=== PATIENT | female | born 1980 | race African-American/Black ===

== ENCOUNTER 2024-12-05 21:57 | Emergency (ER) | payer SELFPAY ==
[~2024-12-05] VITALS: Ht 175.3 cm; Wt 73.0 kg
[2024-12-05 21:59] VITALS: O2SAT 100
[2024-12-05] MEDS: ONDANSETRON HCL 4MG/2ML INJ IV ONE (22:57)
[2024-12-05 22:58] LABS: BASOPHILS % 0.3 % (0.0-2.0); EOSINOPHILS % 1.4 % (0.0-5.0); HEMATOCRIT. 43.5 % (36.0-48.0); HEMOGLOBIN. 14.2 g/dL (12.0-16.0); LYMPHOCYTES % 18.4 % (20.0-50.0); MEAN PLATELET VOLUME 9.4 fl (7.4-10.4); MONOCYTES % 6.0 % (2.0-8.0); NEUTROPHILS % 73.9 % (40.0-76.0); PLATELET 261 x1000/uL (130-400); RED BLOOD CELL COUNT 4.99 mill/uL (4.2-5.4); RED CELL DISTRIBUTION WIDTH 15.6 % (11.6-14.6)
[2024-12-05] MEDS: SODIUM CHLORIDE 0.9% 1,000 ML IV ONE (22:58)
[2024-12-05 23:14] LABS: CREATININE 0.7 mg/dL (0.6-1.0); UREA NITROGEN BLOOD 8 mg/dL (9-23)
[2024-12-05 23:16] LABS: ASPARTATE AMINOTRANSFERASE 29 IU/L (<34); BILIRUBIN DIRECT 0.2 mg/dL (<=3.0); BILIRUBIN TOTAL 0.7 mg/dL (0.1-1.0); PROTEIN TOTAL 7.6 g/dL (6.0-8.3)
[2024-12-06 00:55] VITALS: BP 120/65; PULSE 81; RESP 16; TEMP 36.9; O2SAT 100
== END 2024-12-06 00:57 | disposition home or self-care (01) ==
LOC: ER 21:57
DX: R11.16 Cannabis hyperemesis syndrome (principal); J45.909 Unspecified asthma, uncomplicated; K21.9 Gastro-esophageal reflux disease without esophagitis
CPT/HCPCS: 80076; 80048; 80320; 83690; 85025; 86850; 86900; 86901; 36415; 96361; 96374; 99283; J2405; J7030; G0480